=== PATIENT | male | born 1955 | race Caucasian/White ===

== ENCOUNTER 2020-10-19 06:16 | Day surgery (SDC) | payer MEDICARE, SELFPAY ==
--- NOTE | 2020-10-16 10:13 | P.CONAN_ITS ---
Documented by User: Jordana Pelaez 10/16/20 10:14 HPI - Anesthesia Eval Consult details Narrative: 65yo M for Colonoscopy [facility] Past Medical History Medical History Villatoro esophagus CAD (coronary artery disease) Elevated cholesterol Hiatal hernia Surgical History Surgical History History of esophagogastroduodenoscopy (EGD) History of knee surgery Hx of colonoscopy Social History Social History Smoking Status: Never smoker Use of substances other than those prescribed or required for medical reasons: No Advance Directives: No Advance Directives Information Provided: No Advance Directives on File: No Meds Allergies Allergy/AdvReac Type Severity Reaction Status Date / Time No Known Allergies* Allergy Uncoded 03/26/20 09:20 Exam Exam Date and Time: October 16, 2020 1013 Assessment and Plan Assessment Anesthesia Assessment: Chart Reviewed Documented by User: Cristine John 10/19/20 07:24 [facility] Past Medical History Medical History Villatoro esophagus CAD (coronary artery disease) Elevated cholesterol Hiatal hernia Surgical History Surgical History History of esophagogastroduodenoscopy (EGD) History of knee surgery Hx of colonoscopy Social History Social History Smoking Status: Never smoker Use of substances other than those prescribed or required for medical reasons: No Advance Directives: No Advance Directives Information Provided: No Advance Directives on File: No Meds Allergies Allergy/AdvReac Type Severity Reaction Status Date / Time No Known Allergies* Allergy Uncoded 03/26/20 09:20 Exam Airway Mallampati Class: II TM Dist: >3cm Neck ROM: Full Assessment and Plan Assessment Anesthesia Assessment: Anesthesia Plan Discussed and Chart Reviewed Final Anesthetic Review NPO: Yes ASA Class: III Final Preanesthetic Review: No Changes in Pt Med Stat, Meds/Allgs Chart Reviewed, Consent Obtained/Reviewed and Anes Risks/Benef Reviewed Patient Risk: Intermediate Procedure Risk: Low Assessment/Block/Sedation in SS: Assess/Block/Sedation-SS Anesthetic Plan Anesthetic Plan: MAC: Disposition: Standard PACU
[2020-10-19 06:44] VITALS: BP 150/76; PULSE 54; RESP 16; TEMP 36.6; O2SAT 98; BMI 25.8
[2020-10-19] MEDS: Lactated Ringers 1,000 ML 100 ML IVCONT (06:53)
[2020-10-19 08:19] VITALS: BP 99/62; PULSE 61; RESP 12; TEMP 36.2; O2SAT 98
--- NOTE | 2020-10-19 08:19 | PM.OP ---
Brief Operative Note Date of Service: 10/19/20 Pre-op diagnosis: Screening Post-op diagnosis: other (Colon polyp, Int/Ext Hemorrhoids) Procedure: Colonoscopy to cecum and TI with snare polypectomy and placement of 1 Resolution clip Surgeon: Jorge Alberto Vergara Anesthesia: MAC Estimated blood loss (mL): 2.0 Pathology: other (A. Polyp at 30cm) Condition: stable Disposition: PACU
[2020-10-19 08:34] VITALS: BP 116/60; PULSE 50; RESP 16; TEMP 36.2; O2SAT 98
--- NOTE | 2020-10-19 08:38 | OP_ITS ---
SURGEON: Jorge Alberto Vergara MD INDICATIONS: Full consent has been obtained from him for this, including risks of bleeding and perforation. PREOPERATIVE DIAGNOSIS: Colorectal cancer screening. POSTOPERATIVE DIAGNOSIS: PROCEDURE PERFORMED: Colonoscopy to cecum and terminal ileum with snare polypectomy, and placement of 1 resolution clip. ESTIMATED BLOOD LOSS: COMPLICATIONS: ANESTHESIA: Monitored anesthesia care. ASSISTANTS: SPECIMENS: POSTOPERATIVE DIAGNOSES: Colorectal cancer screening, colon polyp, diverticulosis, internal and external hemorrhoids. DESCRIPTION OF PROCEDURE: The patient was placed in the left lateral decubitus position. The digital rectal exam revealed external hemorrhoids. The Olympus video pediatric colonoscope was entered into the rectum and advanced easily to the cecum. Once in the cecum, I did identify normal-appearing cecal pouch with appendiceal orifice and a normal-appearing ileocecal valve. The terminal ileum was cannulated and appeared normal. Scope was withdrawn back in the colon. The entire cecum and ileocecal valve appeared normal. The scope was slowly withdrawn assessing all mucosal surfaces carefully. Preparation was excellent. At 30 cm, was an approximately 6 to 8 mm polyp, which was snared and recovered by suction. The polypectomy site appeared clean, without any sign of residual polyp nor bleeding. I did place a single resolution clip on the polypectomy site due to the fact that he is go back on his aspirin. This was deployed well and there was good hemostasis. I did not visualize any other polyps, colitis, nor angiodysplasia. There was a mild amount of sigmoid diverticulosis. In the rectum, scope was retroflexed visualizing small internal hemorrhoids, but no other pathology. The rectal mucosa appeared normal. The scope was straightened and withdrawn from the patient. He tolerated the procedure well and was returned to the recovery area in stable condition. IMPRESSION: 1. Colon polyp, status post snare polypectomy. 2. Diverticulosis. 3. Internal and external hemorrhoids. PLAN: The results of the pathology will be checked. If it is a tubular adenoma, I would recommend a followup colonoscopy in 5 years. If it is only hyperplastic, I would recommend a followup colonoscopy in 10 years. He was advised to resume his aspirin tomorrow in regard to his underlying coronary artery disease. MD SALVATORE Lynn/LUCIANA / [phone]
== END 2020-10-19 08:59 | disposition home or self-care (01) ==
PROVIDERS: PCP Internal Medicine Medical Oncology; Visit Provider Internal Medicine
PROC: 0DJD8ZZ Inspection of Lower Intestinal Tract, Via Natural or Artificial Opening Endoscopic (ICD-10-PCS; CPT 45378; principal; 2020-10-19 07:30)
DX: Z12.11 Encounter for screening for malignant neoplasm of colon (principal); D12.6 Benign neoplasm of colon, unspecified; K57.30 Diverticulosis of large intestine without perforation or abscess without bleeding; K64.8 Other hemorrhoids; K64.4 Residual hemorrhoidal skin tags; I25.10 Atherosclerotic heart disease of native coronary artery without angina pectoris; Z79.899 Other long term (current) drug therapy
CPT/HCPCS: 45385; 88305

== ENCOUNTER 2022-12-26 08:28 | Day surgery (SDC) | payer MEDICARE, SELFPAY ==
--- NOTE | 2022-12-23 14:29 | P.CONAN_ITS ---
HPI - Anesthesia Eval Consult details Narrative: 67yo M for Upper Endoscopy [facility] Past Medical History Medical History (Updated 12/23/22 @ 14:16 by Desi Rosa RN) Villatoro esophagus CAD (coronary artery disease) Elevated cholesterol Erosive esophagitis Hiatal hernia Surgical History Surgical History History of esophagogastroduodenoscopy (EGD) History of knee surgery Hx of colonoscopy Social History Social History Patient Tobacco Use Status: Never used Tobacco Use of substances other than those prescribed or required for medical reasons: No Are you DNR?: No Advance Directives: No Advance Directives Information Provided: Yes Meds Allergies Allergy/AdvReac Type Severity Reaction Status Date / Time No Known Allergies* Allergy Uncoded 03/26/20 09:20 Home Medications Medication Instructions Recorded Confirmed Last Taken Type aspirin 81 mg chewable tablet 81 mg PO DAILY 12/23/22 12/23/22 Unknown History atorvastatin 40 mg tablet 40 mg PO DAILY 12/23/22 12/23/22 12/26/22 History lisinopril 10 mg tablet 10 mg PO DAILY 12/23/22 12/23/22 12/26/22 History metoprolol succinate 50 mg 50 mg PO DAILY 12/23/22 12/23/22 12/26/22 History tablet,extended release 24 hr omeprazole 20 mg capsule,delayed 20 mg PO BID 12/23/22 12/23/22 Unknown History release Exam Exam Date and Time: December 23, 2022 118 Assessment and Plan Assessment Anesthesia Assessment: Chart Reviewed
[2022-12-26 09:22] VITALS: BMI 26.6
[2022-12-26 09:28] VITALS: BP 175/73; PULSE 52; RESP 16; TEMP 36.2; O2SAT 96
[2022-12-26] MEDS: Lactated Ringers 1,000 ML 100 ML IVCONT (09:41)
[2022-12-26 11:04] VITALS: BP 120/30; PULSE 56; RESP 16; TEMP 36.1; O2SAT 95
--- NOTE | 2022-12-26 11:06 | P.BOP_ITS ---
Brief Operative Note Date of Service: 12/26/22 Pre-op diagnosis: Villatoro's Post-op diagnosis: other (Same, Hiatal hernia) Procedure: EGD with biopsies and WATS brushings Surgeon: Jorge Alberto Vergara Anesthesia: MAC Was an Instrument Repair Specialist used for this Procedure?: No Estimated blood loss (mL): 2.0 Pathology: other (A. EG Junction at 34cm B. Esophagus at 32cm C. Esophagus at 30cm D. Esophagus at 28cm WATS specimens 28 to 34cm) Condition: stable Disposition: PACU
[2022-12-26 11:19] VITALS: BP 115/78; PULSE 52; RESP 16; TEMP 36.4; O2SAT 96
--- NOTE | 2022-12-26 12:50 | P.CONAN_ITS ---
[facility] Past Medical History Medical History (Updated 12/23/22 @ 14:16 by Desi Rosa RN) Villatoro esophagus CAD (coronary artery disease) Elevated cholesterol Erosive esophagitis Hiatal hernia Family History Family history of problems with anesthesia: No Surgical History Surgical History History of esophagogastroduodenoscopy (EGD) History of knee surgery Hx of colonoscopy History of Problems with Anesthesia: No Social History Social History Patient Tobacco Use Status: Never used Tobacco Use of substances other than those prescribed or required for medical reasons: No Are you DNR?: No Advance Directives: No Advance Directives Information Provided: Yes Meds Allergies Allergy/AdvReac Type Severity Reaction Status Date / Time No Known Allergies* Allergy Uncoded 03/26/20 09:20 Home Medications Medication Instructions Recorded Confirmed Last Taken Type aspirin 81 mg chewable tablet 81 mg PO DAILY 12/23/22 12/23/22 Unknown History atorvastatin 40 mg tablet 40 mg PO DAILY 12/23/22 12/23/22 12/26/22 History lisinopril 10 mg tablet 10 mg PO DAILY 12/23/22 12/23/22 12/26/22 History metoprolol succinate 50 mg 50 mg PO DAILY 12/23/22 12/23/22 12/26/22 History tablet,extended release 24 hr omeprazole 20 mg capsule,delayed 20 mg PO BID 12/23/22 12/23/22 Unknown History release Exam Exam Date and Time: December 26, 2022 1250 Height,Weight and Vital Signs: Height 5 ft 9 in Weight 81.647 kg Last Vital Signs Temp 97.6 F 12/26/22 11:19 Pulse 52 12/26/22 11:19 Resp 16 12/26/22 11:19 BP 115/78 12/26/22 11:19 Pulse Ox 96 12/26/22 11:19 O2 Del Method Room Air 12/26/22 11:19 Airway Mallampati Class: I TM Dist: >3cm Neck ROM: Full Loose/Missing/Broken Teeth: Yes and No Heart: rr Lungs: cta Assessment and Plan Assessment Anesthesia Assessment: Anesthesia Plan Discussed and Chart Reviewed Final Anesthetic Review Family History of Problems with Anesthesia: No History of Problems with Anesthesia: No NPO: Yes ASA Class: II Final Preanesthetic Review: No Changes in Pt Med Stat, Meds/Allgs Chart Reviewed, Consent Obtained/Reviewed and Anes Risks/Benef Reviewed Patient Risk: Low Procedure Risk: Low Anesthetic Plan Anesthetic Plan: MAC: Disposition: Standard PACU
--- NOTE | 2022-12-26 23:03 | OP_ITS ---
DATE OF SERVICE: 12/26/2022 SURGEON: Jorge Alberto Vergara MD INDICATIONS: The patient presents for followup of gastroesophageal reflux and Villatroo's esophagus. Full consent obtained from him for this, including risks of bleeding and perforation. PREOPERATIVE DIAGNOSIS: POSTOPERATIVE DIAGNOSIS: PROCEDURE PERFORMED: Esophagogastroduodenoscopy with biopsies, and brushings for WATS specimen. ESTIMATED BLOOD LOSS: COMPLICATIONS: ANESTHESIA: Medication used; monitored anesthesia care. ASSISTANTS: SPECIMENS: PREOPERATIVE DIAGNOSES: Villatoro's esophagus and gastroesophageal reflux. POSTOPERATIVE DIAGNOSES: Villatoro's esophagus and gastroesophageal reflux, hiatal hernia. DESCRIPTION OF PROCEDURE: The patient was placed in the left lateral decubitus position. The Olympus video gastroscope was passed in the posterior oropharynx and upper esophagus under direct vision. The scope was passed slowly to the distal esophagus. The gastroesophageal junction appeared at 34 cm. Extending from this to 28 cm was a circumferential segment of Villatoro's mucosa. There was no gross evidence of any esophagitis nor any lesions. The scope entered the stomach. There was a large hiatal hernia with the diaphragmatic indentation seen at approximately 40 cm. The hiatal hernia mucosa appeared normal. The scope was advanced to the pylorus and the duodenum was cannulated to the descending portion. The duodenum including the bulb appeared normal without mass or ulceration. The scope was withdrawn back in the stomach. The gastric antrum and body appeared normal with good peristalsis. The scope was retroflexed visualizing the proximal stomach carefully which appeared normal, without any sign of mass or ulceration. The scope was straightened and withdrawn back to the esophagus. Multiple biopsies were obtained at a level of 34 cm just above the EG junction, at 32 cm, at 30 cm and at 28 cm in the region of the squamocolumnar junction. I then obtained a WATS specimen with 2 cytology brushes throughout the entire segment of the Villatoro's mucosa. Proximal to 28 cm, the esophageal mucosa appeared normal. The scope was withdrawn from the patient. He tolerated the procedure well and was returned to the recovery area in stable condition. IMPRESSION: 1. Villatoro's esophagus. 2. Hiatal hernia. PLAN: The results of biopsies will be checked. If there is no dysplasia, I would recommend a repeat upper endoscopy in 3 years when he has his next colonoscopy. He should continue his daily omeprazole. He was advised to resume his aspirin tomorrow as he did not take any today in regard to the underlying coronary artery disease. He was advised to stay off all NSAIDs for least 1 week. He was advised to increase omeprazole to twice a day for 2 weeks as well, and then back to 1 a day long-term. MD SALVATORE Lynn/LUCIANA / [id number] MTDD
== END 2022-12-26 12:12 | disposition home or self-care (01) ==
PROVIDERS: PCP Internal Medicine Medical Oncology; Visit Provider Internal Medicine
PROC: 0DJ08ZZ Inspection of Upper Intestinal Tract, Via Natural or Artificial Opening Endoscopic (ICD-10-PCS; CPT 43235; principal; 2022-12-26 09:50)
DX: K22.70 Barrett's esophagus without dysplasia (principal); K21.00 Gastro-esophageal reflux disease with esophagitis, without bleeding; K44.9 Diaphragmatic hernia without obstruction or gangrene; I25.10 Atherosclerotic heart disease of native coronary artery without angina pectoris; Z95.5 Presence of coronary angioplasty implant and graft; E78.00 Pure hypercholesterolemia, unspecified; Z79.82 Long term (current) use of aspirin; Z79.899 Other long term (current) drug therapy
CPT/HCPCS: 43239; 88305

== ENCOUNTER → 2025-03-13 08:36 | Outpatient (BNV) | payer MEDICARE, SELFPAY | PROVIDERS: PCP Internal Medicine Medical Oncology; Visit Provider Radiology Diagnostic Radiology | DX: M17.12 Unilateral primary osteoarthritis, left knee (principal) | CPT/HCPCS: 73562 ==

== ENCOUNTER 2025-03-13 09:19 | Outpatient (REF) | payer MEDICARE, SELFPAY ==
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
--- OUTSIDE RECORDS SUMMARY | 2025-03-05 05:19 | XMS_ITS ---
Author Organization Jorge Alberto Guzman III, MD Address [address] [place] [facility] [place] [address] Care Team Providers Care Babbitter Name Role Phone Jorge Alberto Guzman Primary Care Provider REASON FOR VISIT told patient to call Social History Sex Assigned At : Social History Observation Description Sex Assigned At Male Encounters Encounter Location Date Provider Diagnosis Jorge Alberto Guzman III, MD [address] [place] [address] [address] [place] [facility] [place] [address] 03/05/2025 Jorge Alberto Guzman Plan Of Treatment Next Appt Details Provider Name:Jorge Alberto Guzman, 05/13/2025 10:30:00 AM, [address] [place] [address] [place], [address], Provider Name:Jorge Alberto Guzman, 11/17/2025 10:00:00 AM, [address] [place] [address] [place], [address], Progress Notes * Carlos BHANDARIDOB: [birth year] (69 yo M)Acc No.[id number]:03/05/2025 Patient: Blair DEIRDRE Carlos :1955 A ge:69 Y S ex:Male Address:[address] [place] [address], [address] * true * Date: Generated for Everardo rodrigues/Suzanne/eTransmitting on: 0 03/13/2025 10:01 AM EDT
--- OUTSIDE RECORDS SUMMARY | 2025-03-05 06:56 | XMS_ITS ---
Author Organization Jorge Alberto Guzman III, MD Address [address] [place] [address] Care Team Providers Care Traffic Control Officer Name Role Phone Jorge Alberto Guzman Primary Care Provider REASON FOR VISIT Lab request Medications Medication SIG (Take, Route, Frequency, Duration) Notes Start Date End Date Status Lisinopril 40 MG 1 tablet Orally Once a day 05/14/2024 Unknown Metoprolol Succinate ER 100 MG 1 tablet Orally Once a day 05/14/2024 Unknown Atorvastatin Calcium 40 MG 1 tablet Oral ly Once a day Unknown Aspirin Adult Low Dose 81 MG 1 tablet Orally Once a day Unknown amLODIPine Besylate 10 MG 1 tablet Orall y Once a day 06/11/2024 Unknown Omeprazole 10 MG 1 capsule Orally Onc e a day 07/08/2024 Unknown Social History Sex Assigned At : Social History Observation Description Sex Assigned At Male Encounters Encounter Location Date Provider Diagnosis Jorge Alberto Guzman III, MD [address] [place] [address] [place] [address] 03/05/2025 Jorge Alberto Guzman UTI symptoms R39.9 Assessments Encounter Date Diagnosis (ICD Code) Assessment Notes Treatment Notes Treatment Clinical Notes 03/05/2025 UTI symptoms (ICD-10 - R39.9) Plan Of Treatment Pending Test Test Name Order Date URINALYSIS (UA) 03/05/2025 Urine Culture 03/05/2025 Next Appt Details Provider Name:Jorge Alberto uGzman, 05/13/2025 10:30:00 AM, [address] [facility] [place], [address], Provider Name:Jorge Alberto Guzman, 11/17/2025 10:00:00 AM, [address] [place] [address] [place], [place], [address], Progress Notes * THONY CarlosDOB: [birth year] (69 yo M)Acc No.[id number]:03/05/2025 Patient: Carlos ARGAON :1955 A ge:69 Y S ex:Male Address:[address] [place] [address], [address] Subjective: * Chief Complaints: * L ab request * Medical History: * Surgical History: * Hospitalization/Major Diagno stic Procedure: * Medications: U nknownOmeprazole 10 MG Capsule Delayed Release 1 capsule [...] Tablet 1 tablet Orally Once a day Unknown Omeprazole 10 MG Capsule Delayed Release 1 capsule Orally Once a day Unknown amLODIPine Besylate 10 MG Tablet 1 tablet Orally Once a day Unknown Aspirin Adult Low Dose 81 MG Tablet Delayed Release 1 tablet Orally Once a day Unknown Atorvastatin Calcium 40 MG Tablet 1 tablet Orally Once a day Unknown Metoprolol Succinate ER 100 MG Tablet Extended Release 24 Hour 1 tablet Orally Once a day Unknown Lisinopril 40 MG Tablet 1 tablet Orally Once a day Objective: * Vitals: * Physical Examination: Assessment: * Assessment: 1. U TI symptoms - R39.9 Plan: * Treatment: * Procedure Codes: * true * Date: Generated for Everardo rodrigues/Suzanne/Felix on: 0 03/13/2025 10:02 AM EDT
--- OUTSIDE RECORDS SUMMARY | 2025-03-05 09:16 | XMS_ITS ---
Author Organization Jorge Alberto Guzman III, MD Address [address] [place] [address] Care Team Providers Care Broach Operator Name Role Phone Jorge Alberto Guzman Primary Care Provider Medications Medication SIG (Take, Route, Fr equency, Duration) Notes Start Date End Date Status Bactrim DS 800-160 MG 1 tablet Orally tw ice a day for 10 days 03/05/2025 03/15/2025 Active Social History Sex Assigned At : Social History Observation Description Sex Assigned At Male Encounters Encounter Location Date Provider Diagnosis Jorge Alberto Guzman III, MD [address] [place] [address] [address] [place] [facility] [address] 03/05/2025 Jorge Alberto Guzman Plan Of Treatment Medication Medication Name Sig Start Date Stop Date Notes Bactrim DS 800-160 MG 1 tablet Orally tw ice a day for 10 days 03/05/2025 03/15/2025 Next Appt Details Provider Name:Jorge Alberto Guzman, 05/13/2025 10:30:00 AM, [address] [facility] [place], [address], Provider Name:Jorge Alberto Guzman, 11/17/2025 10:00:00 AM, [address] [facility] [place], [address], Progress Notes * Carlos BHANDARIDOB: [birth year] (69 yo M)Acc No.[id number]:03/05/2025 Patient: Carlos ARAGON :1955 A ge:69 Y S ex:Male Address:[facility] [place], [address] * Refills Start Bactrim DS Tablet, 800-160 MG, Orally, 20 Tablet, 1 tablet, twice a day, 10 days, Refills=0 * true * Date: Generated for Everardo rodrigues/Suzanne/Prudenceitting on: 0 03/13/2025 10:02 AM EDT
--- OUTSIDE RECORDS SUMMARY | 2025-03-06 12:00 | XMS_ITS ---
Author Organization [facility] [employer] [facility] Address [address] [place] [address] Care Team Providers Care Tobacco Warehouse Agent Name Role Phone Kristyn Chandler Unavailable [phone] REASON FOR VISIT urine culture Encounters Encounter Location Date Provider Diagnosis [facility] [employer] [address] [address] 03/06/2025 Kristyn Chandler Plan Of Treatment No Information Progress Notes * DONALD BHANDARIDOB: [birth year] (69 yo M)Acc No.[id number]:03/06/2025 Progress Notes Patient: Blair DONALD GILMORE Provider: MARTIN Garcia :1955 A ge:69 Y S ex:Male Date:03/06/2025 Address:[address] [place] [id number] Subjective: * Chief Complaints: * 1 . Urine culture. * Medical History: Objective: * Vitals: Assessment: Plan: * Treatment: * * Electronic signature of MARTIN Velasco on 03/13/2025 at 10:02 AM EDT Sign off status: Pending * Provider: MARTIN Garcia Date: 03/06/2025 Generated for Everardo rodrigues/Suzanne/eTransmitting on: 03/13/2025 10:02 AM EDT
--- NOTE | ~2025-03-13 | XR_ITS ---
EXAMINATION: XR KNEE, LEFT CLINICAL INFORMATION: PAIN IN LEFT KNEE COMPARISON: None available. TECHNIQUE: Four views of the left knee. FINDINGS: No fracture, dislocation, or suspicious bone lesion. No malalignment. Mild medial compartment and patellofemoral compartment joint space narrowing. Mild spurring of the tibial spines. The lateral compartment is preserved. No significant joint effusion. Soft tissues appear normal. XR/XR knee LT 3V IMPRESSION: 1. No acute findings of the left knee. No joint effusion. 2. Mild medial and patellofemoral compartment joint space narrowing. Electronically signed by: aGllo De La Cruz MD 03/13/2025 10:12 AM EDT
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
--- OUTSIDE RECORDS SUMMARY | 2025-03-13 10:02 | XMS_ITS | Patient Health Record ---
Author Organization [facility], [facility] Address [address] [place] [address] Care Team Providers Care Meteorological Observer Name Role Phone Kristyn Chandler Unavailable [phone] Reason For Referral No Information Plan Of Treatment No Information Insurance Providers Payer Name Payer Address Payer Phone Subscriber Number Group Number Insured Name Patient Relationship to Insured Coverage Start Date Coverage End Date MEDICARE B [address] [place] [address] [id number] DONALD BARRAGAN Self - patient is the insured [address] [facility] [address] [place] [address] [id number] DONALD BARRAGAN Self - patient is the insured
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
--- OUTSIDE RECORDS SUMMARY | 2025-03-13 10:02 | XMS_ITS | Clinical Summary ---
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 Phone Jorge Alberto Guzman MD Primary Care Provider [phone] Social History Tobacco Use Types Packs/Day Years Used Date Smoking Tobacco: Never Smokeless Tobacco: Never Alcohol Use Standard Drinks/Week Comments Yes 0 (1 standard drink = 0.6 oz pur e alcohol) Sex and Gender Information Value Date Recorded Sex Assigned at Not on file Legal Sex Male 9:10 PM EST Gender Identity Not on file Sexual Orientation Not on file Obstetrics History Last Filed Vital Signs Vital Sign Reading Time Taken Comments Blood Pressure 172/88 02/19/2024 9:51 AM EDT Sitting L Arm Pulse 53 02/19/2024 9:51 AM EDT Temperature - - Respiratory Rate - - Oxygen Saturation - - Inhaled Oxygen Concentration - - Weight 83.4 kg (183 lb 14.4 oz) 02/19/2024 9:51 AM EDT Height 172.7 cm (5' 8 ) 02/19/2024 9:51 AM EDT Body Mass Index 27.96 02/19/2024 9:51 AM EDT Plan of Treatment Upcoming Encounters Date Type Department Care Team (Late st Contact Info) Description 05/29/2025 2:40 PM EST Office Visit [facility] Cardiology [facility] [address] [place] [address] Rafael Spann NP [address] [place] [address] [address] [place] [address] Health Maintenance Due Date Last Done Comments DTaP,Tdap,and Td Vaccines (1 - Tdap) 1973 Pneumococcal Vaccine: 50+ Ye ars (1 of 1 - PCV) 2004 Zoster Vaccines (1 of 2) 2004 Abdominal Aortic Aneurysm (A AA) Screen 06/18/2022 Cholesterol Screening (Lipid Panel) 06/18/2022 Colorectal Cancer Screening: Colonoscopy 06/18/2022 Falls Risk Assessment 06/18/2022 Hepatitis C Screening 06/18/2022 Medicare Annual Wellness Visit 06/18/2022 Social Influencers of Health Screening 06/18/2022 Hypertension/CHF/CAD Annual BMP Blood Test 06/19/2022 Depression Screening 07/10/2024 COVID-19 Vaccine (1 - 2023-2 5 season) 2025 Influenza Vaccine (#1) 2025 05/22/2020 RSV Immunization Adult Patie nts (1 - 1-dose 75+ series) 2029 HIB Vaccines Aged Out No longer eligi ble based on patient's age to complete this topic HPV Vaccines Aged Out No longer eligi ble based on patient's age to complete this topic Hepatitis A Vaccines Aged Out No long er eligible based on patient's age to complete this topic Hepatitis B Vaccines Aged Out No long er eligible based on patient's age to complete this topic IPV Vaccines Aged Out No longer eligi ble based on patient's age to complete this topic MMR Vaccines Aged Out No longer eligi ble based on patient's age to complete this topic Meningococcal ACWY Vaccine Aged Out N o longer eligible based on patient's age to complete this topic Meningococcal B Vaccine Aged Out No l onger eligible based on patient's age to complete this topic RSV Immunization Patients Un maria a 20 months Aged Out No longer eligible b ased on patient's age to complete this topic Varicella Vaccines Aged Out No longer eligible based on patient's age to complete this topic Insurance [facility] MEDICARE Care Teams Dry Cleaning Teacher Relationship Specialty Start Date End Date Jorge Alberto Guzman MD [address] [address] PCP - General 06/01/20
--- OUTSIDE RECORDS SUMMARY | 2025-03-13 10:03 | XMS_ITS | Clinical Summary ---
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 Not on adria e 03/05/2025 Are you concerned about learning? Not on file 03/05/2025 No 03/05/2025 No 03/05/2025 Digital Access Answer Date Recorded No 03/05/2025 No 03/05/2025 Reliable internet access at home? Not on file 03/05/2025 Device with a working camera? Not on file Sex and Gender Information Value Date Recorded Sex Assigned at Male 03/05/2025 11:52 AM EDT Legal Sex Male 11:39 AM EDT Gender Identity Male 03/05/2025 11:52 AM EDT Sexual Orientation Straight 03/05/2025 11 :52 AM EDT Plan of Treatment Not on file Medical Devices Not on file Procedures Procedure Name Priority Date/Time Associated Diagnosis Comments HC URINALYSIS MICROSCOPIC ONLY Routine 03/05/2025 12:05 PM EDT URINALYSIS W/REFLEX URINE CULTURE Routine 03/05/2025 12:05 PM EDT URINE CULTURE Routine 03/05/2025 12:05 PM EDT from Last 3 Months Results * (ABNORMAL) Urine Sediment (03/05/2025 12:05 PM EDT) RBC 93(H) 0 - 2 /hpf [facility] WBC 82(H) 0 - 9 /hpf [facility] SQUAMOUS CELLS Present(A) None /hpf [facility] BACTERIA 1+(A) None /hpf [facility] MUCUS Present(A) None [facility] MICROSCOPIC REVIEW Completed [facility] 03/05/2025 12:0 5 PM EDT 03/05/2025 12:48 PM EDT us Jorge Alberto Guzman MD URINE [place]AB[place] [address] * (ABNORMAL) Urinalysis w/reflex Urine Culture (03/05/2025 12:05 PM EDT) COLOR Yellow Yellow [facility] CLARITY Clear Clear [facility] GLUCOSE Negative Negative [facility] BILI Negative Negative [facility] KETONES Negative Negative [facility] SPECIFIC GRAVITY 1.019 1.001 - 1.035 [facility] BLOOD 2+(A) Negative [facility] PH 6.0 4.5 - 8.0 [facility] Protein-UA 1+(A) Negative [facility] UROBILINOGEN Negative Negative [facility] NITRITE Negative Negative [facility] Leukocyte esterase, ur 2+(A) Negative [facility] 03/05/2025 12:0 5 PM EDT 03/05/2025 12:48 PM EDT us Jorge Alberto Guzman MD URINE [place]ABLES [place] [address] * (ABNORMAL) Urine Culture (03/05/2025 12:05 PM EDT) Special Requests No Special Requests Reflexed from [id number] 03/05/2025 2:06 PM EDT [facility] Urine Culture >100,000 colony forming units per mL ESCHERICHIA COLI(A) 03/07/2025 6:15 AM EDT [facility] Urine 03/05/2025 12:0 5 PM EDT 03/05/2025 12:48 PM EDT Narrative Organism Antibiotic Method Susceptibility Escherichia coli Cefazolin RAE METHOD 2: Susceptible Escherichia coli Ceftriaxone RAE METHOD <=1: Susceptible Escherichia coli Ampicillin + Sulbactam RAE METHOD 4/2: Susceptible Escherichia coli Ampicillin RAE METHOD <=4: Susceptible Escherichia coli Meropenem RAE METHOD <=0.5: Susceptible Escherichia coli Gentamicin RAE METHOD <=2: Susceptible Escherichia coli Amikacin RAE METHOD <=8: Susceptible Escherichia coli Trimethoprim/sulfamethoxazole RAE MET HOD <=0.5/9.5: Susceptible Escherichia coli Nitrofurantoin RAE METHOD <=16: Susceptible Escherichia coli Ciprofloxacin RAE METHOD <=0.25: Susceptible Escherichia coli Levofloxacin RAE METHOD <=0.5: Susceptible Escherichia coli Piperacillin-tazobactam RAE METHOD <=2/4: Susceptible Escherichia coli Cefazolin(urine) RAE METHOD Susceptible Comment: us Jorge Alberto Guzman MD MICROBIOLOGY - GENERAL ORD ERABLES Final Result Performing Organization Address City/[facility]/[place] [address] from Last 3 Months Insurance MEDICARE PART A & B BLUE CROSS MEDEX SUPPLEMENT MEDICARE PART A & B Member Subscriber Plan / Payer ( fective 2019-Present) Name:Carlos Arteaga Member ID:[id number] Relation to Subscriber:Self Name:Carlos Arteaga Subscriber ID:[id number] Payer ID:[id number] Group ID:Not on file Type:Medicare Address: [employer] [address] MEDICARE PART A & B MEDICARE PART A & B MEDICARE PART A & B MEDICARE PART A & B Additional Source Comments The information contained in this document represents components of the legal health record. It is not the complete legal health record.[facility]
--- OUTSIDE RECORDS SUMMARY | 2025-03-13 10:03 | XMS_ITS | Patient Health Record ---
Author Organization [facility] Address [address] [place] [address] Care Team Providers Care Director Of Collections And Archives Name Role Phone Jorge Alberto Guzman MD Primary Care Provider Unavailab Jorge Alberto Patel Unavailable [phone] Allergies No Known Allergies Reason For Referral No Information Medications Medication SIG (Take, Route, Frequency, Duration) Notes Start Date End Date Status Omeprazole 20 MG TAKE ONE CAPSULE BY MOUTH TWICE A DAY for 90 Active Metoprolol Succinate ER 50 MG TAKE 1 TABLET BY MOUTH ONCE A DAY Oral for 30 Active Atorvastatin Calcium 40 MG TAKE 1 TABLET BY MOUTH EVERY DAY Oral for 90 Active Aspirin 81 81 MG 1 tablet Orally Once a day for 30 day(s) Active Lisinopril 10 MG TAKE ONE TABLET BY MOUTH EVERY DAY Oral for 90 Active Omeprazole 40 MG 1 capsule Orally Onc e a day/as needed 07/15/2016 Not-Taking Immunizations Vaccine Route Administration Date Status Comme nts Influenza Unknown 05/10/2018 Administered Influenza Unknown 05/27/2020 Administered Problems Problem Type SNOMED Code ICD Code Onset Dates Problem Status W/U Status Risk Notes Problem Screening for malignant neoplasm of colon (977548854) Encounter for screening for malignant neoplasm of colon (Z12.11) Active confirmed Problem 166558125 Gastroesophageal reflux disease with esophagitis (K21.0) Active confirmed Problem 496562628 Barretts esophag us without dysplasia (K22.70) Active confirmed Problem 07093249 Erosive esophagi tis (K22.10) Active confirmed Problem 46754871 Esophagitis (K20.9) Active confirmed Problem 358646247 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) Active confirmed Problem 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 Problem 629556813 Villatoro''s esoph shaneka without dysplasia (K22.70) Active confirmed Problem 511723885 Gastroesophageal reflux disease with esophagitis without hemorrhage (K21.00) Active confirmed Plan Of Treatment Future Test Test Name Order Date UPPER GI ENDOSCOPY 05/29/2015 UPPER GI ENDOSCOPY 10/16/2018 UPPER GI ENDOSCOPY 11/24/2018 COLONOSCOPY 06/02/2020 UPPER GI ENDOSCOPY 11/01/2022 Insurance Providers Payer Name Payer Address Payer Phone Subscriber Number Group Number Insured Name Patient Relationship to Insured Coverage Start Date Coverage End Date MEDICARE OF [place] [address] [place] [address] [id number] DONALD BARRAGAN Self - patient is the insured MEDEX ATTN CLAIMS [address] [place] [address] [id number] DONALD BARRAGAN Self - patient is the insured Medical (General) History Medical History History ICD Code Erosive esophagitis and Dyer ett's esophagus--his original upper endoscopy was in 2010, and the followup exam in 12/2011 revealed healing of the esophagitis and no dysplasia within the Villatoro's esophagus mucosa. He does have a large hiatal hernia. EGD in 07/2015--Villatoro's, no dysplasia, no esophagitis Negative screening colonosco py in September 2010; has had 3 neg. colonoscopies prior to that Denies VT,DM,CVA,Lung disease,renal dise ase CAD-08/2017 cardiac stent-no [place] EGD's in 2018--first upper e ndoscopy without being on his omeprazole revealed significant erosive esophagitis and his hiatal hernia; a followup exam in 3 months later while on omeprazole revealed almost complete healing of the esophagitis and just a tiny area of Villatoro's esophagus without dysplasia. Screening Colonoscopy in October of 2020 w ith removal of a tubular adenoma Surgical History Surgery Date(Month/Year)
== END 2025-03-13 09:20 | disposition home or self-care (01) ==
LOC: HO.XRAY 09:19
PROVIDERS: PCP Internal Medicine Medical Oncology; Visit Provider Internal Medicine Medical Oncology
DX: M25.562 Pain in left knee (principal); M25.462 Effusion, left knee
CPT/HCPCS: 73562